=== PATIENT | male | born 1995 | race Caucasian/White ===

== ENCOUNTER 2018-01-20 17:06 | Emergency (ER) | payer OTHER ==
[~2018-01-20] VITALS: Ht 172.7 cm; Wt 86.2 kg
== END 2018-01-20 19:47 | disposition home or self-care (01) ==
LOC: ER 17:06
DX: S01.82XA Laceration with foreign body of other part of head, initial encounter (principal); S90.02XA Contusion of left ankle, initial encounter; W26.8XXA Contact with other sharp object(s), not elsewhere classified, initial encounter; Y93.89 Activity, other specified; Y92.828 Other wilderness area as the place of occurrence of the external cause; Y99.8 Other external cause status